=== PATIENT | female | born 1940 | race African-American/Black ===

== ENCOUNTER 2019-05-27 00:56 | Emergency (ER) | payer MEDICARE, OTHER ==
[2019-05-27] MEDS ORDERED: LORAZEPAM 1 MG TABLET PO ONE (02:11)
[2019-05-27] MEDS ORDERED: AMLODIPINE BESYLATE 10 MG TABLET PO ONE (02:12)
--- NOTE | 2019-05-27 02:17 | ER Document Report ---
ED General - General Chief Complaint: Altered Mental Status Stated Complaint: ALTERED MENTAL STATUS Time Seen by Provider: 05/27/19 01:51 Primary Care Provider: ESPINOZA ROBERSON FNP-C [COMMUNITY BASED STAFF] - Follow up as needed Mode of Arrival: Ambulatory Information source: Patient, Relative TRAVEL OUTSIDE OF THE [place] IN LAST 30 DAYS: No - HPI Notes: Patient is a 78-year-old female history of dementia and hypertension presents to the emergency department with report from family that live with her that she would not go to sleep this evening and was insisting upon walking in the dark to a house where they previously lived. After walking the route 3 times with the patient, they brought the patient in for evaluation as she would not stop requesting to walk the route again. The patient refuses to take any pills, and is only taking citalopram currently, where as previously she was on Norvasc, aspirin, hydrochlorothiazide and a multivitamin. Patient has a history of dementia with a negative CT scan 3 years ago and memory testing and other testing which proved dementia. Patient has had no fever, chills, nausea, vomiting, headache, neck pain, chest pain, difficulty breathing, dysuria. Patient has no obvious psychosis and denies any suicidal or homicidal ideation. The patient is laughing and interactive with me on exam. No active hallucinations. Patient lives with family, who provide her close to 24-hour care given her dementia. - Related Data Allergies/Adverse Reactions: No Known Allergies Allergy (Unverified 03/27/15 14:14) Past Medical History - General Information source: Patient - Social History Smoking Status: Never Smoker Frequency of alcohol use: None Drug Abuse: None Lives with: Family Family History: Reviewed & Not Pertinent - Past Medical History Cardiac Medical History: Reports: Hx Heart Attack, Hx Hypertension Musculoskeletal Medical History: Reports Hx Arthritis Past Surgical History: Reports: Hx Cardiac Catheterization, Hx Cardiac Surgery - open heart, Hx Tubal Ligation - Immunizations Hx Diphtheria, Pertussis, Tetanus Vaccination: - unknown Review of Systems - Review of Systems -: Yes All other systems reviewed and negative Physical Exam - Vital signs Vitals: Temp Pulse Resp BP Pulse Ox 97.7 F 100 18 214/106 H 96 05/27/19 01:05 05/27/19 01:05 05/27/19 01:05 05/27/19 01:05 05/27/19 01:05 - Notes Notes: PHYSICAL EXAMINATION: GENERAL: Well-appearing, well-nourished and in no acute distress. HEAD: Atraumatic, normocephalic. EYES: Pupils equal round and reactive to light, extraocular movements intact, conjunctiva are normal. ENT: Nares patent, oropharynx clear without exudates. Moist mucous membranes. NECK: Normal range of motion, supple without lymphadenopathy LUNGS: Breath sounds clear to auscultation bilaterally and equal. No wheezes rales or rhonchi. HEART: Regular rate and rhythm with 1/6 ALVARO over apex. ABDOMEN: Soft, nontender, nondistended abdomen. No guarding, no rebound. No masses appreciated. Female : deferred Musculoskeletal: Normal range of motion, no pitting or edema. No cyanosis. NEUROLOGICAL: Cranial nerves grossly intact. Normal speech, normal gait. Normal sensory, motor exams. Patient is alert to person and place and recognizes her family members, which is her baseline. She does not know the year or president. PSYCH: Normal mood, normal affect. SKIN: Warm, Dry, normal turgor, no rashes or lesions noted. Course - Re-evaluation Re-evalutation: 05/27/19 02:36 Initial blood pressure was somewhat elevated at 214/106. The patient had a repeat blood pressure of 197/89. Patient agreed to p.o. medications with me, although family stated she would refuse the p.o. medications at home unless they were able to hide a liquid in her other drinks. There is no clinical suggestion for acute intracranial process and patient neurologically is intact per her baseline with dementia. Patient was given p.o. Ativan and her regular dose of Norvasc. 05/27/19 02:38 05/27/19 02:39 Family was appropriate and I do not suspect abuse. - Vital Signs Vital signs: Temp Pulse Resp BP Pulse Ox 97.7 F 100 16 173/61 H 98 05/27/19 01:05 05/27/19 01:05 05/27/19 03:31 05/27/19 03:31 05/27/19 03:31 - Laboratory Result Diagrams: 05/27/19 02:00 05/27/19 02:00 Laboratory results interpreted by me: 07/31/19 07/31/19 07/31/19 02:00 02:00 03:00 Hgb 11.8 L Hct 35.3 L RDW 15.2 H Sodium 145.9 H Chloride 110 H Est GFR (Non-Af Amer) 55 L Glucose 121 H Urine Blood MODERATE H Ur Leukocyte Esterase TRACE H Discharge - Discharge Clinical Impression: Medically noncompliant, Wandering, Urinary tract bacterial infections Dementia Qualifiers: Dementia type: unspecified type Dementia behavioral disturbance: without behavioral disturbance Qualified Code(s): F03.90 - Unspecified dementia without behavioral disturbance Hypertension Qualifiers: Hypertension type: essential hypertension Qualified Code(s): I10 - Essential (primary) hypertension Condition: Stable Disposition: HOME, SELF-CARE Instructions: Dementia ([facility]), High Blood Pressure ([facility]), Urinary Tract Infection ([facility]) Additional Instructions: Apply a clonidine patch every week on the same day. You may take Valium liquid up to 5 ml (equal to 5 mg) up to twice per day as needed for anxiety or agitation. Prescriptions: Clonidine [Catapres-Tts 1 (0.1 mg/24 Hr) Transderm Patch] 1 each TD ASDIR PRN #12 patch.tdwk PRN Reason: Diazepam 5 mg PO BIDP PRN #100 ml PRN Reason: Referrals: ESPINOZA ROBERSON, [employer] [facility] [COMMUNITY BASED STAFF] - Follow up in 1 week
[2019-05-27 02:20] LABS: ABSOLUTE BASOPHILS # (AUTO) 0.1 10^3/uL (0.0-0.2); ABSOLUTE EOSINOPHILS # (AUTO) 0.1 10^3/uL (0.0-0.6); ABSOLUTE LYMPHOCYTES (AUTO) 1.4 10^3/uL (0.5-4.7); ABSOLUTE MONOCYTES (AUTO) 0.5 10^3/uL (0.1-1.4); ABSOLUTE NEUT (AUTO) 2.9 10^3/uL (1.7-8.2); HEMATOCRIT 35.3 % (36.0-47.0); HEMOGLOBIN 11.8 g/dL (12.0-15.5); LYMPHOCYTES % (AUTO) 28.5 % (13-45); MEAN CORPUSCULAR HGB CONC 33.5 g/dL (32.0-36.0); MEAN CORPUSCULAR VOLUME 87 fl (80-97); MONOCYTES % (AUTO) 10.3 % (3-13); PLATELET COUNT 210 10^3/uL (150-450); RED BLOOD COUNT 4.07 10^6/uL (3.72-5.28); RED CELL DISTRIBUTION WIDTH 15.2 % (11.5-14.0); SEGMENTED NEUTROPHILS % (AUTO) 58.2 % (42-78); TOTAL CELLS COUNTED % (AUTO) 100 %
[2019-05-27 02:32] LABS: ALANINE AMINOTRANSFERASE 15 U/L (9-52); ALBUMIN 4.4 g/dL (3.5-5.0); ALKALINE PHOSPHATASE 110 U/L (38-126); ANION GAP 9 (5-19); ASPARTATE AMINO TRANSFERASE 26 U/L (14-36); BILIRUBIN,DIRECT 0.2 mg/dL (0.0-0.4); BILIRUBIN,TOTAL 0.3 mg/dL (0.2-1.3); BLOOD UREA NITROGEN 12 mg/dL (7-20); CARBON DIOXIDE 27 mmol/L (22-30); CHLORIDE 110 mmol/L (98-107); GLUCOSE 121 mg/dL (75-110); TOTAL PROTEIN 8.2 g/dL (6.3-8.2)
[2019-05-27 03:12] LABS: APPEARANCE,URINE CLEAR; BILIRUBIN,URINE NEGATIVE (NEGATIVE); COLOR,URINE YELLOW; GLUCOSE, URINE NEGATIVE (NEGATIVE); KETONES,URINE NEGATIVE (NEGATIVE); LEUKOCYTE ESTERASE,URINE TRACE (NEGATIVE); NITRITE,URINE NEGATIVE (NEGATIVE); PROTEIN,URINE NEGATIVE (NEGATIVE); UROBILINOGEN,URINE NEGATIVE mg/dL (<2.0)
[2019-05-27] MEDS ORDERED: CEFTRIAXONE 1 GM/D5W RTU 1 GM/50 ML RTUPB IV ONE (03:38)
[2019-05-27 04:18] VITALS: BP 172/71
== END 2019-05-27 04:20 | disposition home or self-care (01) ==
LOC: ER 00:56
DX: F03.91 Unspecified dementia, unspecified severity, with behavioral disturbance (principal); Z91.83 Wandering in diseases classified elsewhere; N39.0 Urinary tract infection, site not specified; B96.89 Other specified bacterial agents as the cause of diseases classified elsewhere; I10 Essential (primary) hypertension; T46.1X6A Underdosing of calcium-channel blockers, initial encounter; Z91.14 Patient's other noncompliance with medication regimen; Z79.899 Other long term (current) drug therapy
CPT/HCPCS: 99284; 96365; 36415; 85025; 80053; 81001; A9270 ×2; J0696

== ENCOUNTER 2019-08-23 13:24 | Emergency (ER) | payer MEDICARE ==
[2019-08-23 14:03] LABS: ABSOLUTE LYMPHOCYTES (AUTO) 1.2 10^3/uL (0.5-4.7); ABSOLUTE MONOCYTES (AUTO) 0.9 10^3/uL (0.1-1.4); BASOPHILS % (AUTO) 0.8 % (0-2); EOSINOPHILS % (AUTO) 0.4 % (0-6); HEMATOCRIT 36.1 % (36.0-47.0); HEMOGLOBIN 11.9 g/dL (12.0-15.5); LYMPHOCYTES % (AUTO) 18.9 % (13-45); MEAN CORPUSCULAR HEMOGLOBIN 28.8 pg (27.0-33.4); MEAN CORPUSCULAR HGB CONC 32.9 g/dL (32.0-36.0); MEAN CORPUSCULAR VOLUME 88 fl (80-97); MONOCYTES % (AUTO) 15.2 % (3-13); PLATELET COUNT 190 10^3/uL (150-450); RED BLOOD COUNT 4.12 10^6/uL (3.72-5.28); RED CELL DISTRIBUTION WIDTH 15.1 % (11.5-14.0); SEGMENTED NEUTROPHILS % (AUTO) 64.7 % (42-78); TOTAL CELLS COUNTED % (AUTO) 100 %; WHITE BLOOD COUNT 6.2 10^3/uL (4.0-10.5)
[2019-08-23 14:14] LABS: INTERNATIONAL RATION (INR) 1.09; PROTHROMBIN TIME 14.1 SEC (11.4-15.4)
[2019-08-23 14:17] LABS: APPEARANCE,URINE CLEAR; BILIRUBIN,URINE NEGATIVE (NEGATIVE); COLOR,URINE YELLOW; GLUCOSE, URINE NEGATIVE (NEGATIVE); KETONES,URINE NEGATIVE (NEGATIVE); PROTEIN,URINE 30 mg/dL (NEGATIVE); URINE SPECIFIC GRAVITY 1.024
--- NOTE | 2019-08-23 14:23 | ER Document Report ---
ED General - General Chief Complaint: General Weakness Stated Complaint: POSSIBLE UTI Time Seen by Provider: 08/23/19 13:47 Primary Care Provider: SANDRO ÁLVAREZ MD [Primary Care Provider] - Follow up as needed TRAVEL OUTSIDE OF THE [place] IN LAST 30 DAYS: No - HPI Notes: Patient is a 78-year-old female with history of hypertension, CAD, and dementia who presents with granddaughter who is also a nurse here in the emergency department for complaints of being altered from baseline 2 days ago and not wanting to ambulate because she normally would. Granddaughter states that 2 days ago she noticed a little droop on the right side of her face which she is not sure was truly a droop or not as her mens exam was negative at that time at home. Granddaughter states that she was rubbing her left hip yesterday as well and complaining of back pain. Granddaughter states that she has not been as ambulatory as she normally is. She is otherwise eating and drinking without d ifficulty. She is urinating normally and having normal bowel movements. Granddaughter is unsure if this is just a urinary infection as well. Denies drug allergies. Currently, granddaughter states that she is at baseline with mentation and behavior. She is no longer complaining of any back or leg pain. She is not on any blood thinning medications. Per family as well: Denies any headache, fever, head injury, neck pain, URI, sore throat, chest pain, syncope, cough, shortness of breath, wheeze, dyspnea, abdominal pain, nausea/vomiting/diarrhea, urinary retention, dysuria, hematuria, loss of control of bowel or bladder, numbness/tingling, muscle paralysis, or rash. - Related Data Allergies/Adverse Reactions: No Known Allergies Allergy (Unverified 03/27/15 14:14) Past Medical History - Social History Smoking Status: Never Smoker Chew tobacco use (# tins/day): No Frequency of alcohol use: None Drug Abuse: None Family History: Reviewed & Not Pertinent Patient has suicidal ideation: No Patient has homicidal ideation: No - Past Medical History Cardiac Medical History: Reports: Hx Heart Attack, Hx Hypertension Renal/ Medical History: Denies: Hx Peritoneal Dialysis Musculoskeletal Medical History: Reports Hx Arthritis Past Surgical History: Reports: Hx Cardiac Catheterization, Hx Cardiac Surgery - open heart, Hx Tubal Ligation - Immunizations Hx Diphtheria, Pertussis, Tetanus Vaccination: - unknown Review of Systems - Review of Systems -: Yes All other systems reviewed and negative Physical Exam - Vital signs Vitals: Temp Pulse Resp Pulse Ox 98.2 F 103 H 16 98 08/23/19 13:35 08/23/19 13:35 08/23/19 13:35 08/23/19 13:35 - Notes Notes: PHYSICAL EXAMINATION: GENERAL: Well-appearing, well-nourished and in no acute distress. A&O to person. Answers questions appropriately. Baseline per family. HEAD: Atraumatic, normocephalic. Non-tender. EYES: Pupils equal round and reactive to light, extraocular movements intact, sclera anicteric, conjunctiva are normal. No nystagmus. ENT: EAC clear b/l. TM's intact b/l without erythema, fluid, or perforation. Nares patent and without discharge. oropharynx clear without exudates. No tonsilar hypertrophy or erythema. Moist mucous membranes. No sinus tenderness. NECK: Normal range of motion, supple without lymphadenopathy. No rigidity/meningismus. No midline tenderness. LUNGS: Breath sounds clear to auscultation bilaterally and equal. No wheezes rales or rhonchi. HEART: Regular rate and rhythm without murmurs, rubs, gallops. ABDOMEN: Soft, nontender, nondistended abdomen. No guarding, no rebound. Normal bowel sounds present. + very mild left CVA tenderness. Musculoskeletal: Ext b/l: FROM to passive/active. Strength 5+/5. No deficits noted. No bony tenderness of extremities. Pelvis stable. Back: No midline tenderness. FROM. Extremities: zero to trace pitting edema b/l LE's. Peripheral pulses not easily palpable (bedside doppler noted pulses b/l). Capillary refill less than 2 seconds. NEUROLOGICAL: NIH 0. GCS 15. Cranial nerves grossly intact. Normal speech. Pt transferred herself from to bed and did weight bear. Normal sensory, motor exams. Pronator drift negative. Heel/ruiz, finger/nose wnl. PSYCH: Normal mood, normal affect. SKIN: Warm, Dry, normal turgor, no rashes or lesions noted. Course - Re-evaluation Re-evalutation: 08/23/19 15:[address] Lacy who is in agreement with dispo/plan: Patient is currently an afebrile, well-hydrated, 78-year-old female who presents with altered mental status from baseline and possible UTI, otherwise back to baseline per family. Vitals are currently acceptable without significant tachycardia, tachypnea, or hypoxia. PE is otherwise unremarkable for any focal neurological deficits. NIH 0, GCS 15, cranial nerves grossly intact. Patient did arrive by EMS with a temperature that they received of 100.1 and a heart rate of 103. She was given Tylenol. She does have large stool burden on on x- ray which is otherwise unremarkable including head CT which is unremarkable. Labs otherwise acceptable. Urine was questionable, but with the 100.1 temp and altered mental status we will treat as a urinary infection. Urine culture is pending. Family feels competent to continue monitoring at home. Low suspicion for CVA, acute intracranial pathology, acute appendicitis, bowel obstruction, acute cholecystitis, acute cholangitis, perforated diverticulitis, incarcerated hernia, pancreatitis, perforated ulcer, peritonitis, sepsis, spinal abscess, or other systemic emergent condition at this time. Family is aware that her condition can change from initial presentation and needs to monitor symptoms closely and seek medical attention if any acute changes. Rx for keflex. Conservative measures otherwise for symptoms. Recheck with your PCM in 2-3 days. Consider consult with a supervisor maintenance and custodians. Return to the ED with any worsening/concerning symptoms otherwise as reviewed in discharge. Family is in agreement. - Vital Signs Vital signs: Temp Pulse Resp BP Pulse Ox 98.2 F 100 16 142/118 H 98 08/23/19 13:35 08/23/19 13:37 08/23/19 13:35 08/23/19 13:37 08/23/19 13:35 - Laboratory Result Diagrams: 08/23/19 13:43 08/23/19 13:43 Laboratory results interpreted by me: 08/23/19 08/23/19 08/23/19 13:43 13:43 13:55 Hgb 11.9 L RDW 15.1 H Parke % (Auto) 15.2 H Potassium 3.5 L Glucose 146 H Total Protein 8.3 H Urine Protein 30 H Urine Blood MODERATE H Urine Urobilinogen 2.0 H Leukocyte Esterase Rfl TRACE H Discharge - Discharge Clinical Impression: Acute UTI (urinary tract infection) AMS (altered mental status) Qualifiers: Altered mental status type: unspecified Qualified Code(s): R41.82 - Altered mental status, unspecified Condition: Stable Disposition: HOME, SELF-CARE Instructions: Cephalexin ([facility]), Urinary Tract Infection ([facility]) Additional Instructions: Push fluids (i.e. water, cranberry juice) Proper hygenic technique Keep the skin clean Tylenol/ibuprofen as needed Take medications as directed F/u with your PCM in 2-3 days for a recheck Consider consult with a Urologist for ongoing/worsening symptoms. Return to the ED with any worsening symptoms and/or development of fever, headache, chest pain, palpitations, syncope, shortness of breath, trouble breathing, abdominal pain, n/v/d, blood in stool/urine, loss of control of bowel/bladder, urinary retention, or other worsening symptoms that are concerning to you. Prescriptions: Cephalexin Monohydrate [Keflex 500 mg Capsule] 500 mg PO TID #21 capsule Forms: Elevated Blood Pressure Referrals: SANDRO ÁLVAREZ MD [Primary Care Provider] - Follow up as needed
[2019-08-23 14:24] LABS: ALBUMIN 4.3 g/dL (3.5-5.0); ALKALINE PHOSPHATASE 112 U/L (38-126); ANION GAP 10 (5-19); ASPARTATE AMINO TRANSFERASE 26 U/L (14-36); BILIRUBIN,DIRECT 0.1 mg/dL (0.0-0.4); BILIRUBIN,TOTAL 0.7 mg/dL (0.2-1.3); BLOOD UREA NITROGEN 12 mg/dL (7-20); CALCIUM 9.9 mg/dL (8.4-10.2); CARBON DIOXIDE 26 mmol/L (22-30); CHLORIDE 106 mmol/L (98-107); GLUCOSE 146 mg/dL (75-110); POTASSIUM 3.5 mmol/L (3.6-5.0); TOTAL PROTEIN 8.3 g/dL (6.3-8.2)
--- NOTE | 2019-08-23 14:42 | EKG REPORT ---
SEVERITY:- ABNORMAL ECG - SINUS RHYTHM VINNY, CONSIDER BIATRIAL ABNORMALITIES LEFT VENTRICULAR HYPERTROPHY INFERIOR INFARCT, OLD ANTEROLATERAL INFARCT, AGE INDETERMINATE : Confirmed by: Inga Mary MD 23-Aug-2019 14:41:23
--- NOTE | 2019-08-23 14:55 | RADIOLOGY REPORT (SQ) ---
EXAM DESCRIPTION: CT HEAD WITHOUT COMPLETED DATE/TIME: 08/23/2019 2:41 pm REASON FOR STUDY: AMS from baseline dementia COMPARISON: None. TECHNIQUE: Axial images acquired through the brain without intravenous contrast. Images reviewed wi th bone, brain and subdural windows. Additional sagittal and coronal reconstructions were generated. Images stored on PACS. All CT scanners at this facility use dose modulation, iterative reconstruction, and/or weight based d osing when appropriate to reduce radiation dose to as low as reasonably achievable (ALARA). [facility]: Dose Right [facility]: CareDose [facility]: Dose Right [facility]: Teradose 4D [facility]: Vertishear RADIATION DOSE: 910 mGy cm LIMITATIONS: None. FINDINGS: VENTRICLES: Normal size and contour. CEREBRUM: No masses. No hemorrhage. No midline shift. No evidence for acute infarction. Few scatte red areas of low density in the white matter most likely chronic small vessel ischemic changes. CEREBELLUM: No masses. No hemorrhage. No alteration of density. No evidence for acute infarction. EXTRAAXIAL SPACES: No fluid collections. No masses. ORBITS AND GLOBE: No intra- or extraconal masses. Normal contour of globe without masses. CALVARIUM: No fracture. Hyperostosis frontalis. PARANASAL SINUSES: No fluid or mucosal thickening. SOFT TISSUES: No mass or hematoma. OTHER: No other significant finding. IMPRESSION: No acute intracranial pathology. Small vessel white matter disease. EVIDENCE OF ACUTE STROKE: NO. COMMENT: Quality ID # [id number]: Final reports with documentation of one or more dose reduction techniques (e.g., Automated exposure control, adjustment of the mA and/or kV according to patient size, use of iterative reconstruction technique) TECHNICAL DOCUMENTATION: JOB ID: [id number]- All Rights Reserved Reading location - IP/workstation name: [email or web address]
--- NOTE | 2019-08-23 15:04 | RADIOLOGY REPORT (SQ) ---
EXAM DESCRIPTION: PELVIS AP COMPLETED DATE/TIME: 08/23/2019 2:50 pm REASON FOR STUDY: left hip pain COMPARISON: None. NUMBER OF VIEWS: One view TECHNIQUE: AP Pelvis LIMITATIONS: None. FINDINGS: MINERALIZATION: Normal. HIPS: No acute fracture or dislocation. No worrisome bone lesions. PELVIS AND SACRUM: No acute fracture or dislocation. No worrisome bone lesions. OTHER: Large burden of stool in the colon. IMPRESSION: No radiographic findings of the hips or pelvis to explain pain. No displaced fractures. Consider CT or MRI to further evaluate. Large burden of stool in the colon. COMMENT: Pelvic fractures are often occult on plain radiographs. If strong clinical suspicion for f racture, recommend CT or MR. TECHNICAL DOCUMENTATION: JOB ID: [id number] [employer]- All Rights Reserved Reading location - IP/workstation name: [email or web address]
[2019-08-23] MEDS ORDERED: NORMAL SALINE 1000 ML 1,000 ML IV ONE (15:23)
[2019-08-23 16:22] VITALS: BP 168/52
== END 2019-08-23 16:52 | disposition home or self-care (01) ==
LOC: ER 13:24
DX: N39.0 Urinary tract infection, site not specified (principal); R41.82 Altered mental status, unspecified; R53.1 Weakness; I10 Essential (primary) hypertension; I25.2 Old myocardial infarction; Z98.51 Tubal ligation status
CPT/HCPCS: 93005; 99285; 96360; 36415; 87040; 87086; 85025; 85610; 80053; 81001; 83605; 72170; 70450; 93010; J7030